=== PATIENT | female | born 1940 | race Caucasian/White ===

== ENCOUNTER 2020-05-20 00:36 | Outpatient (CLI) | payer MEDICARE, SELFPAY ==
[2020-05-20 18:03] LABS: SARS-CoV-2 RNA PCR Negative
== END 2020-05-20 00:37 | disposition home or self-care (01) ==
LOC: ANHCOVIDDT 00:42
PROVIDERS: PCP Family Medicine; Visit Provider Surgery Plastic and Reconstructive Surgery
DX: Z01.812 Encounter for preprocedural laboratory examination (principal); Z20.828 Contact with and (suspected) exposure to other viral communicable diseases
CPT/HCPCS: 87635; C9803; U0003

== ENCOUNTER 2020-05-23 01:16 | Day surgery (SDC) | payer MEDICARE, SELFPAY ==
[2020-05-16 15:11] VITALS: BMI 21.6
[2020-05-23 11:35] VITALS: BP 158/82; PULSE 84; RESP 20; TEMP 36.9; O2SAT 100
[2020-05-23] MEDS: LACTATED RINGERS 1,000 ML 30 ML IV CONT ×2 (12:20→15:39)
--- NOTE | 2020-05-23 13:07 | WPDANESEPPF ---
Anes - Initial Pre Proc Eval Procedure: Operation Date: 05/23/20 13:30 Proposed Procedures p Left Index and Left Middle Finger Sagittal Band Repair, Left Middle Finger and Left Ring Finger Trigger Finger Release - David Preston MD s Left Open Carpal Tunnel Release - David Preston MD Date/Time: 05/23/20 13:07 Surgeon: David Preston MD Pre Op Diagnosis: Left Sagittal Band Rupture/Carpal Juan Syndr Patient Data Age: 80 Gender: F Height: 5 ft 2 in Weight: 54.3 kg Last Vital Signs Temp 98.5 F 05/23/20 11:35 Pulse 84 05/23/20 11:35 Resp 20 05/23/20 11:35 BP 158/82 H 05/23/20 11:35 Pulse Ox 100 05/23/20 11:35 Allergies Allergy/AdvReac Type Severity Reaction Status Date / Time bacitracin Allergy Unknown Rash Verified 05/17/20 10:38 codeine Allergy Unknown Confusion Verified 05/17/20 10:38 erythromycin base Allergy Unknown Nausea Verified 05/17/20 10:38 gramicidin D Allergy Unknown Rash Verified 05/17/20 10:38 neomycin Allergy Unknown Rash Verified 05/17/20 10:38 polymyxin B Allergy Unknown Rash Verified 05/17/20 10:38 Home Medications Medication Instructions Recorded Confirmed Type biotin 1,000 mcg PO DAILY 05/16/20 05/16/20 History calcium carbonate-vitamin D3 1 cap PO DAILY 05/16/20 05/16/20 History [Calcium 600 + D(3)] levothyroxine [Euthyrox] 50 mcg PO DAILY 05/16/20 05/16/20 History lsmxvoty-kbu-awlp-FA-lutein 1 tablet PO DAILY 05/16/20 05/16/20 History [Centrum Silver Women] omega 7-cbi-nlh-fish oil [Fish Oil] 1 cap PO DAILY 05/16/20 05/16/20 History docusate sodium 100 mg capsule 100 mg PO BID #14 cap 05/17/20 Rx ondansetron HCl 4 mg tablet 4 mg PO Q6H PRN #30 tablet 05/17/20 Rx tramadol 50 mg tablet 50 mg PO Q6H PRN #15 tablet 05/17/20 05/17/20 Rx Patient hx anesthesia problems: none Family hx anesthesia problems: none PMFSH Past Medical History Medical History (Updated 05/23/20 @ 13:06 by Shreyas Nelson MD) Broken femur Hypothyroidism Surgical History Surgical History Hx of blepharoplasty Social History Social History Smoking status: Never smoker Alcohol intake: never Living arrangements: alone Spiritual care concerns: No Anes - Eval Final PreProcedure Day of Procedure 05/23/20 13:07 Patient weight: normal Heart: regular rate and rhythm Lungs: clear to auscultation Airway: Mallampati scale class II Neurological: alert and oriented and dysarthria Last oral intake: >/= 8 hours ASA classification: II Emergent: no Anesthetic plan: proceed Anesthesia type and monitoring: general GIVS and standard monitoring Informed Consent: The patient's anesthetic plan and its attendant risks and benefits were discussed with the patient/family/POA. Questions were solicited and answers provided to the satisfaction of the patient/family/POA.
--- NOTE | 2020-05-23 13:17 | SUR.PREOP ---
1200-PT AWARE SURGEON HAS DELAYED SELF MINIMUM OF 60 MINUTES. 1300-PT AWARE SURGEON DELAY IS NOW 90 MINUTES.
--- NOTE | 2020-05-23 14:05 | WPDHPUPDATE1 ---
History and Physical Update Update Date/Time: 05/23/20 14:05 History and Physical has been reviewed, including an updated exam of the patient. There are NO changes in the patient's condition. Risks, benefits, and alternatives have been discussed and questions answered. Patient agrees to proceed with procedure.
--- NOTE | 2020-05-23 14:31 | P.OP_ITS ---
Procedure Note - Detailed Date of procedure: 05/23/20 Pre-op diagnosis: Left Sagittal Band Rupture/Carpal Juan Syndr Post-op diagnosis: same Procedure performed: 1. Left open carpal tunnel release 2. Left middle finger A1 glory release 3. Left ring finger A1 glory release 4. Left index finger sagittal band repair 5. Left middle finger sagittal band repair Description of procedure: A thorough hand examination was completed preoperativ jaye to verify the findings. Risks, benefits, alternatives discussed. All questions answered to her satisfaction and consent obtained. She was taken to the operating room placed supine on the operating room table. Anesthesia was provided by anesthesiology and prepped and draped in a standard sterile fashion. Surgical time-out was taken. 1% lidocaine and 0.25% Marcaine with epinephrine was used anesthetize locally at each area. Esmarch was used to exsanguinate the arm and tourniquet inflated to 250 mmHg. A 15 blade used to make an incision just ulnar to the palmaris longus tendon. Dissection was continued down until the transverse carpal ligament was identified this was completely released under direct visualization with no evidence of neurovascular tendon injury. I closed with horizontal mattress 4-0 nylon. A 15 blade used to make an incision middle finger A1 pulleys. Dissection was continued down to the midline protecting the neurovascular bundle and the A1 pulleys were completely released under direct visualization with no evidence of neurovascular tendon injury. This was closed with 4-0 nylon. A 15 blade used to make an incision over the MP joints dorsally of the index and middle finger. I put the hand through range of motion to verify the sagittal band injury on the radial aspect with ulnar subluxation. The index finger clearly had subluxation, the middle finger did not. Fifteen blade used to make an incision to create a distally-based slip of the extensor tendon using the most ulnarl 3rd. This was passed under the tendon and then around the collateral ligament him back to itself and sutured with 3-0 Ticron. On the middle finger I tightened the radial sagittal band with 3-0 Ticron Tourniquet was released and a verified strict hemostasis. Closed with 5 0 nylon. A volar based splint was made with the MPs in extension. Xeroform fluffs and a lightly applied Miguel Angel wrap were placed. Patient tolerated well. Anesthesia: MAC Surgeon: David Preston MD Estimated blood loss (mL): 5 Tourniquet time (min): 28 Drains: No Packing: No Pathology: none sent Complications: No immediate complications Condition: stable Disposition: PACU
[2020-05-23] MEDS: ceFAZolin 2 GM/D5W 50 ML 2 GM/50 ML BAG IVPB (14:32)
[2020-05-23] MEDS: LIDO 1%/EPINEPHRINE 1:100,000 20 ML VIAL INFILTRATE (14:32)
[2020-05-23 15:40] VITALS: BP 118/61; PULSE 73; RESP 12; O2SAT 97
[2020-05-23 16:10] VITALS: BP 137/71; PULSE 80; RESP 16
[2020-05-23 16:40] VITALS: BP 154/78; PULSE 68; RESP 14
== END 2020-05-23 17:19 | disposition home or self-care (01) ==
PROVIDERS: PCP Family Medicine; Visit Provider Surgery Plastic and Reconstructive Surgery
PROC: (CPT 26055; principal; 2020-05-23 13:30)
PROC: (CPT 64721; 2020-05-23 13:30)
DX: G56.02 Carpal tunnel syndrome, left upper limb (principal); S66.313A Strain of extensor muscle, fascia and tendon of left middle finger at wrist and hand level, initial encounter; S66.311A Strain of extensor muscle, fascia and tendon of left index finger at wrist and hand level, initial encounter; X58.XXXA Exposure to other specified factors, initial encounter
CPT/HCPCS: 64721; 26055 ×2; 26418 ×2; J0690; J2405; J2704; J3010; J7120

== ENCOUNTER 2020-08-10 07:45 | Outpatient (CLI) | payer MEDICARE, SELFPAY ==
--- NOTE | ~2020-08-10 | MM_ITS ---
EXAMINATION: MM screening prince BI w [place] HISTORY: Screening mammogram TECHNIQUE: Craniocaudal and mediolateral oblique 3-D tomosynthesis images were obtained and synthetic 2-D images were generated. CAD analysis was submitted and interpreted. COMPARISON: 05/19/2019, 05/14/2018, 05/08/2017 bilateral digital screening mammogram examinations BREAST PARENCHYMAL COMPOSITION: There are scattered areas of fibroglandular density. FINDINGS: There is no evidence of suspicious mass, calcification, or architectural distortion to sugg est malignancy in either breast. There has been no suspicious interval change. IMPRESSION: 1. No mammographic evidence of malignancy. 2. Recommend routine screening mammography in one year. BI-RADS Category 1: Negative Reviewed, dictated and finalized at location A. AL SECURITY ASSESSOR
== END 2020-08-10 07:46 | disposition home or self-care (01) ==
LOC: ANHIMG 07:49
PROVIDERS: PCP Family Medicine; Visit Provider Family Medicine
DX: Z12.31 Encounter for screening mammogram for malignant neoplasm of breast (principal)
CPT/HCPCS: 77063; 77067

== ENCOUNTER 2020-10-18 09:59 | Outpatient (CLI) | payer MEDICARE, SELFPAY ==
--- NOTE | ~2020-10-18 | CT_ITS ---
EXAMINATION: CT abdomen pelvis w con INDICATION: Unspecified abdominal pain TECHNIQUE: Computed tomographic images of the abdomen and pelvis were obtained after the administrati on of 100 cc of Omnipaque 350 intravenous contrast. The dose-length product (DLP) was 316.69 mGy-cm. Automated exposure control and iterative reconstruction technique were employed. COMPARISON: None available FINDINGS: Minimal dependent atelectasis is present in the lung bases. The heart size is normal. The l iver, spleen, pancreas, gallbladder, and adrenal glands are normal. The kidneys are unremarkable. No pathologically enlarged abdominal or pelvic lymph nodes are identified. There is no free intraperiton eal gas or evidence of bowel obstruction. A moderate volume of colonic stool is present. There is a 5 .1 x 3.8 cm cystic lesion in the pelvis situated between the rectum, uterus, and the distal sigmoid c olon. A small fat-containing umbilical hernia is noted. Orthopedic hardware is present in proximal ri ght femur. There is severe lumbar spondylosis. IMPRESSION: 1. No CT correlate for the patient's symptoms. 2. Cystic lesion deep in the pelvis of unclear origin. Finding could reflect sequela of prior surgery such as a peritoneal inclusion cyst or seroma in the appropriate clinical context. Other considerati ons include lymphangioma or enteric duplication cyst. Malignancy is less favored. Follow-up pelvic ul trasound is recommended. Reviewed, dictated and finalized at location A. AND FIXTURE BUILDER IMPRESSION: 1. No CT correlate for the patient's symptoms. 2. Cystic lesion deep in the pelvis of unclear origin. Finding could reflect se quela of prior surgery such as a peritoneal inclusion cyst or seroma in the rober ropriate clinical context. Other considerations include lymphangioma or enteric duplication cyst. Malignancy is less favored. Follow-up pelvic ultrasound is r ecommended.
[2020-10-18 10:23] LABS: Estimated Glomerular Filt Rate 53
== END 2020-10-18 10:00 | disposition home or self-care (01) ==
LOC: ANHIMG 10:05
PROVIDERS: PCP Family Medicine; Visit Provider Family Medicine
DX: R10.9 Unspecified abdominal pain (principal); R93.5 Abnormal findings on diagnostic imaging of other abdominal regions, including retroperitoneum
CPT/HCPCS: 74177; Q9967

== ENCOUNTER 2020-10-31 10:31 | Outpatient (CLI) | payer MEDICARE, SELFPAY ==
--- NOTE | ~2020-10-31 | US_ITS ---
EXAMINATION: US pelvic complete w TV DATE: 10/31/2020 11:20 INDICATION: Unspecified abdominal pain. Pelvic cystic mass. TECHNIQUE: Multiple transabdominal and transvaginal sonographic images of the pelvis were obtained. COMPARISON: CT abdomen and pelvis 10/18/2020, lumbar spine MRI 12/26/17 FINDINGS: TRANSABDOMINAL ULTRASOUND: The uterus measures 7.1 x 2.7 x 4.2 cm. There is no free fluid in the pelvis. TRANSVAGINAL ULTRASOUND: The endometrial complex contains fluid and 2 polyps with the larger measuring 6 mm. The endometrial c omplex measures 2 mm in thickness not including the polyps. The right ovary measures 0.7 x 2.1 x 0.9 cm. The left ovary measures 1.5 x 2.8 x 1.9 cm. There is normal vascular flow in the ovaries. There i s a 4.6 cm cystic mass with peripheral low level echoes posterior to the uterus. IMPRESSION: 1. 4.6 cm cystic mass with peripheral low level echoes posterior to the uterus, stable from 12/26/17, likely benign. 2. Two endometrial polyps measuring up to 6 mm. Consider resection. Reviewed, dictated and finalized at location A. KNITTER HELPER
== END 2020-10-31 10:32 | disposition home or self-care (01) ==
PROVIDERS: PCP Family Medicine; Visit Provider Physician Assistant
DX: R10.9 Unspecified abdominal pain (principal); R93.89 Abnormal findings on diagnostic imaging of other specified body structures
CPT/HCPCS: 76830; 76856

== ENCOUNTER → 2020-11-28 15:15 | Outpatient (CLI) | payer MEDICARE, SELFPAY ==
--- NOTE | ~2020-11-28 | XR_ITS ---
EXAMINATION: XR forearm LT 2V DATE: 11/28/2020 16:10 INDICATION: Medial left forearm bruising post fall TECHNIQUE: AP an lateral views of the left forearm were obtained. COMPARISON: none FINDINGS: Postoperative change of prior first carpal metacarpal suspension arthroplasty with trapezial resectio n. Bone alignment is otherwise normal. No fractures. Mild polyarticular osteoarthritis at the left el bow at multiple joints in the left wrist and carpus. Small enthesophyte at the tip of the olecranon a nd at the lateral epicondyle of the distal humerus. Soft tissues are unremarkable with no elbow joint effusion. IMPRESSION: 1. Postoperative changes of left first carpal metacarpal suspension arthroplasty and mild scattered d egenerative skeletal changes. No acute osseous abnormality. Reviewed, dictated and finalized at location A. IMPRESSION: 1. Postoperative changes of left first carpal metacarpal suspension arthroplast y and mild scattered degenerative skeletal changes. No acute osseous abnormalit y.
--- NOTE | ~2020-11-28 | XR_ITS ---
EXAMINATION: XR knee RT 3V EXAM DATE: 11/28/2020 16:10 INDICATION: No known recent injury provided at this time. Pain of the right knee. TECHNIQUE: Three projections of the right knee. Comparison is made to prior examination from 9. FINDINGS: No evidence osteochondral defect or joint body in the right knee joint. There are no acut e fractures or dislocations identified. There is no subcutaneous gas. There is small joint effusion . Femoral intramedullary mono with supporting screws are unchanged. There is mild tricompartmental pr imary osteoarthritis. IMPRESSION: 1. Mild right knee osteoarthritis. 2. Small joint effusion. Reviewed, dictated and finalized at location A.
--- NOTE | ~2020-11-28 | XR_ITS ---
EXAMINATION: XR foot LT min 3V EXAM DATE: 11/28/2020 16:10 INDICATION: Initial encounter following injury, with pain of the left foot, 1st toe TECHNIQUE: Left foot dorsoplantar, lateral and oblique projections obtained and reviewed. There is n o prior study for comparison. FINDINGS: There is acute fracture at the medial aspect left 1st proximal phalangeal base with about 5 mm gap and also suspect the fractured edge of the avulsion is pointing medially, away from the dono r site. There is also a few millimeters of lateral subluxation proximal phalanx with respect to the m etatarsal head. 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 Al so significantly medially subluxed 2nd and 3rd proximal phalanges at the MCP joints, opposite directi on of the fractured 1st proximal phalanx subluxation. The 2nd and 3rd subluxations suspected most lik jaye chronic, please clinically correlate. There is mild polyarticular left foot primary osteoarthriti s. IMPRESSION: 1. Acute fracture medial base left 1st proximal phalanx. 2. Other findings suspected to be chronic. Reviewed, dictated and finalized at location A.
== END ==
PROVIDERS: PCP Family Medicine; Visit Provider Physician Assistant
DX: S92.912A Unspecified fracture of left toe(s), initial encounter for closed fracture (principal); M17.11 Unilateral primary osteoarthritis, right knee; M25.461 Effusion, right knee; M19.032 Primary osteoarthritis, left wrist; M19.022 Primary osteoarthritis, left elbow
CPT/HCPCS: 73090; 73562; 73630

== ENCOUNTER 2020-12-19 16:10 | Outpatient (CLI) | payer MEDICARE, SELFPAY ==
--- NOTE | 2020-12-19 15:00 | ECG_ITS ---
Measurements Intervals [place] Rate: 62 P: 51 MI: 166 QRS: -54 QRSD: 88 T: 14 QT: 387 QTc: 393 Interpretive Statements SINUS RHYTHM LEFT AXIS DEVIATION LOW QRS VOLTAGE IN PRECORDIAL LEADS CANNOT RULE OUT SEPTAL INFARCT, AGE INDETERMINATE BORDERLINE T WAVE ABNORMALITY- ANTEROLAT/INF LEADS BASELINE ARTIFACT- I, II, III, AVR, AVL, AVF, V1 ABNORMAL ECG Electronically Signed On 12-19-2020 16:52:35 CDT by Roman Ferro D.O.
[2020-12-19 15:19] LABS: Basophils Absolute Auto 0.1 K/mm3 (0.0-0.1); Eosinophils Absolute Auto 0.1 K/mm3 (0-0.3); Eosinophils Percent Auto 1.6 % (0-4.4); Hematocrit 39.8 % (37.0-47.0); Hemoglobin 12.8 g/dL (12.0-15.0); Immature Granulocyte Absolute 0.02 K/mm3 (0.00-0.031); Immature Granulocyte Percent A 0.2 % (0-0.5); Lymphocytes Absolute Auto 2.08 K/mm3 (0.9-3.2); Lymphocytes Percent Auto 25.7 % (18.3-44.2); Mean Corpuscular HGB Conc 32.2 g/dl (32-36); Mean Corpuscular Hemoglobin 31.2 pg (26-34); Mean Corpuscular Volume 97.1 fl (80-100); Mean Platelet Volume 11.1 fl (7.4-10.4); Monocytes Absolute Auto 0.5 K/mm3 (0.1-0.6); Monocytes Percent Auto 6.5 % (2.6-8.5); Neutrophils Absolute Auto 5.3 K/mm3 (1.3-6.7); Platelet Count Result 346 k/mm3 (150-375); Red Cell Distribution Width 13.2 % (11.5-14.5); White Blood Count 8.1 K/mm3 (4.5-10.0)
== END 2020-12-19 16:11 | disposition home or self-care (01) ==
LOC: ANHSURGERY 01-25 16:10
PROVIDERS: PCP Family Medicine; Visit Provider Obstetrics & Gynecology
DX: Z01.818 Encounter for other preprocedural examination (principal); R10.2 Pelvic and perineal pain; R94.31 Abnormal electrocardiogram [ECG] [EKG]
CPT/HCPCS: 36415; 85025; 86850; 86900; 86901; 93005

== ENCOUNTER → 2020-12-26 03:29 | Outpatient (CLI) | payer MEDICARE, SELFPAY ==
[2020-12-26 20:30] LABS: SARS-CoV-2 RNA PCR Negative
== END ==
PROVIDERS: PCP Family Medicine; Visit Provider Obstetrics & Gynecology
DX: Z01.812 Encounter for preprocedural laboratory examination (principal); Z20.822 Contact with and (suspected) exposure to COVID-19
CPT/HCPCS: C9803; U0003; U0005

== ENCOUNTER 2020-12-29 01:52 | Day surgery (SDC) | payer MEDICARE, SELFPAY ==
[2020-12-18 13:13] VITALS: BMI 23.6
--- NOTE | 2020-12-27 12:02 | PM.IMHP ---
H&P: HPI History of Present Illness Date/Time: 12/27/20 12:02 This is an 80 many years postmenopausal who was admitted to undertaken robotic total vaginectomy and bilateral salpingo-oophorectomy. She also has a hernia which Dr. Baez cure repair. Ultrasound showed an endometrial polyp with benign findings on Pap smear and biopsy. Risks and benefits of this procedure reviewed including but not exclusive of , aspiration pneumonia, bleeding, transfusion, perforation to bowel, bladder, ureters, or other internal organs with need for laparotomy. She voiced good understanding. She received the [employer]CO[employer] handout entitled hysterectomy as well as the div in she handout. She had all questions answered and asked to proceed Chief Complaint: pelvic mass and hernia Review of Systems Review of Systems: All systems reviewed & are unremarkable except as noted in HPI and below PMFSH Past Medical History Medical History Broken femur Clawtoe, acquired Fracture of great toe, left, closed High cholesterol History of adverse reaction to anesthesia light-headed, vomited History of basal cell carcinoma Hypothyroidism Postsurgical retinal scar Surgical History Surgical History History of carpal tunnel release left hand History of surgery right femur 2014 Hx of blepharoplasty S/P tonsillectomy and adenoidectomy Family History Family History Sibling Family history of Parkinson's disease Family history of elevated blood lipids Father Family history of glaucoma, Onset Age: 96 Mother Hypertension Family history of malignant neoplasm of stomach, Onset Age: 88 Unknown Diabetes mellitus Heart disease Hypertension Cancer Other Arthritis History of stomach cancer Social History Social History Smoking status: Never smoker Second hand tobacco smoke exposure: No Smoking end date: 05/26/65 Alcohol intake: never Substance use: never Substance use type: does not use Spiritual care concerns: No Meds Home Medications and Allergies Home Medications Medication Instructions Recorded Confirmed Type Calcium 600 + D(3) 1 cap PO DAILY 05/16/20 12/25/20 History Centrum Silver Women 1 tablet PO DAILY 05/16/20 12/25/20 History biotin 1,000 mcg PO DAILY 05/16/20 12/25/20 History omega 7-vwj-tej-fish oil [Fish Oil] 1 cap PO DAILY 05/16/20 12/25/20 History levothyroxine 50 mcg tablet 50 mcg PO DAILY #90 tablet 08/07/20 12/25/20 Rx Allergies Allergy/AdvReac Type Severity Reaction Status Date / Time bacitracin Allergy Unknown Rash Verified 12/26/20 10:40 codeine Allergy Unknown Confusion Verified 12/26/20 10:40 erythromycin base Allergy Unknown Nausea Verified 12/26/20 10:40 gramicidin D Allergy Unknown Rash Verified 12/26/20 10:40 neomycin Allergy Unknown Rash Verified 12/26/20 10:40 polymyxin B Allergy Unknown Rash Verified 12/26/20 10:40 Exam Const: General: no acute distress Eyes: General: appearance normal, both eyes and all related structures Neck: Neck: supple and no JVD Thyroid: thyroid normal Resp: Effort & Inspection: normal respiratory effort Auscultation: clear to auscultation bilaterally Cardio: Rate: regular rate Rhythm: regular rhythm GI: Inspection: non-distended GI Palp: Yes Soft to palpation, No Tenderness to palpation present (GI) and No Guarding due to palpation present (GI) Auscultation: normal bowel sounds : External Female Exam: normal external appearance Speculum Exam - Vagina: normal appearance of the vagina Speculum Exam - Cervix: normal appearance of the cervix Bimanual exam- vagina & uterus: enlarged Bimanual Exam- Adnexa, other: normal adnexae Skin: General skin exam: no rashes or lesions noted Extrem: General: normal
--- NOTE | 2020-12-27 14:57 | PC.NURSE ---
NO CHANGE IN HEALTH HX SINCE LAST INTERVIEW ON 12/18/20
--- NOTE | 2020-12-28 10:54 | WPDANESEPPF ---
Anes - Initial Pre Proc Eval Procedure: Operation Date: 12/29/20 11:30 Proposed Procedures p Robotic Assisted Total Vaginal Hysterectomy With Bilateral Salpingo Oophorectomy - Grover Vega MD s Umbilical Hernia Repair - Jenaro Hernandez DO Date/Time: 12/28/20 10:54 Surgeon: Grover Vega MD Pre Op Diagnosis: Pelvic cystic mass pain Patient Data Age: 80 Gender: F Height: 1.57 m Weight: 58.63 kg Allergies Allergy/AdvReac Type Severity Reaction Status Date / Time bacitracin Allergy Unknown Rash Verified 12/29/20 10:11 codeine Allergy Unknown Confusion Verified 12/29/20 10:11 erythromycin base Allergy Unknown Nausea Verified 12/29/20 10:11 gramicidin D Allergy Unknown Rash Verified 12/29/20 10:11 neomycin Allergy Unknown Rash Verified 12/29/20 10:11 polymyxin B Allergy Unknown Rash Verified 12/29/20 10:11 Home Medications Medication Instructions Recorded Confirmed Type Calcium 600 + D(3) 1 cap PO DAILY 05/16/20 12/29/20 History Centrum Silver Women 1 tablet PO DAILY 05/16/20 12/29/20 History biotin 1,000 mcg PO DAILY 05/16/20 12/29/20 History omega 1-dvw-cbe-fish oil [Fish Oil] 1 cap PO DAILY 05/16/20 12/29/20 History levothyroxine 50 mcg tablet 50 mcg PO DAILY #90 tablet 08/07/20 12/29/20 Rx hydrocodone-acetaminophen 1 tablet PO Q4H PRN #30 tablet 12/29/20 Rx Patient hx anesthesia problems: none Family hx anesthesia problems: none PMFSH Past Medical History Medical History Broken femur Clawtoe, acquired Fracture of great toe, left, closed High cholesterol History of adverse reaction to anesthesia light-headed, vomited History of basal cell carcinoma Hypothyroidism Postsurgical retinal scar Surgical History Surgical History History of carpal tunnel release left hand History of surgery right femur 2014 Hx of blepharoplasty S/P tonsillectomy and adenoidectomy Family History Family History Sibling Family history of Parkinson's disease Family history of elevated blood lipids Father Family history of glaucoma, Onset Age: 96 Mother Hypertension Family history of malignant neoplasm of stomach, Onset Age: 88 Unknown Diabetes mellitus Heart disease Hypertension Cancer Other Arthritis History of stomach cancer Social History Social History Smoking status: Never smoker Second hand tobacco smoke exposure: No Smoking end date: 05/26/65 Alcohol intake: never Substance use: never Substance use type: does not use Living arrangements: alone Spiritual care concerns: No Anes - Eval Final PreProcedure Day of Procedure 12/28/20 10:54 Patient weight: normal Heart: regular rate and rhythm Lungs: clear to auscultation and normal air movement Airway: Mallampati scale class II Neurological: alert and oriented Last oral intake: >/= 8 hours ASA classification: II Emergent: no Anesthetic plan: proceed Anesthesia type and monitoring: general ETT Informed Consent: The patient's anesthetic plan and its attendant risks and benefits were discussed with the patient/family/POA. Questions were solicited and answers provided to the satisfaction of the patient/family/POA.
[2020-12-29] VITALS (10 sets, daily range): BP systolic 121–145; BP diastolic 53–84; PULSE 63–86; RESP 12–18; TEMP 36.1–36.4; O2SAT 96–100
--- NOTE | 2020-12-29 06:03 | WPDHPUPDATE1 ---
History and Physical Update Update Date/Time: 12/29/20 06:03 History and Physical has been reviewed, including an updated exam of the patient. There are NO changes in the patient's condition. Risks, benefits, and alternatives have been discussed and questions answered. Patient agrees to proceed with procedure.
[2020-12-29] MEDS: LACTATED RINGERS 1,000 ML 30 ML IV CONT ×2 (10:30→12:57)
[2020-12-29] MEDS: KETOROLAC 15 MG/ML VIAL (*BKC) IV PUSH ×2 (10:33→17:39)
[2020-12-29] MEDS: ACETAMINOPHEN 500 MG TABLET 1000 MG PO (10:33)
--- NOTE | 2020-12-29 10:39 | SUR.PREOP ---
Dr. Serrato and Dr. Bonnie Conti notified of jewelry on right ring finger. Jewelry waiver signed by patient and placed on chart.
--- NOTE | 2020-12-29 10:53 | SUR.PREOP ---
Per Dr. Serrato hold scopalamine patch at this time.
--- NOTE | 2020-12-29 11:20 | WPDHPUPDATE1 ---
History and Physical Update Update Date/Time: 12/29/20 11:20 History and Physical has been reviewed, including an updated exam of the patient. There are NO changes in the patient's condition. Risks, benefits, and alternatives have been discussed and questions answered. Patient agrees to proceed with procedure.
[2020-12-29] MEDS: ceFAZolin 2 GM/D5W 50 ML 2 GM/50 ML BAG IVPB (11:23)
[2020-12-29] MEDS: BUPIVACAINE/EPINEPHRINE 0.5% 30 ML VIAL INFILTRATE (11:55)
--- NOTE | 2020-12-29 12:25 | PM.PROC ---
Procedure Note - Detailed Date of procedure: 12/29/20 Pre-op diagnosis: Pelvic cystic mass pain Surgeon: Grover Vega MD Postop diagnosis: Torsion of left paraovarian cyst Procedure: Robotic total vaginal hysterectomy and bilateral salpingo-oophorectomy. This was done in conjunction with a umbilical hernia repair with Dr. Jenaro casanova Anesthesia: General tracheal EBL: 25cc Findings: A torsion of left paraovarian cyst. Small uterus and opposite ovary and tube Complications: None Description of procedure: The patient was prepped and draped in the normal sterile fashion placed in the dorsal lithotomy position. Under excellent general endotracheal anesthesia weighted speculum placed in posterior fornix of vagina. The anterior lip of the cervix grasped with a single-tooth tenaculum and the uterus sounded to 8cm. Serial dilatation with fragmented dilators performed followed by passes of the 8. DIEGO and the 2. And a half cold cup. A 16 Yoruba catheter was placed. The remaining the instruments removed. Gloves were changed A supraumbilical incision was made in the Veress needle passed in the abdomen. The abdomen was filled with CO2 gas [id number]. The 8mm trocar was advanced in the abdomen. The down site was visualized and no injury seen. The patient placed in Trendelenburg and right and left lateral quadrant incisions made. The 8mm trocars advanced under direct visualization assuring no injury. A right upper quadrant incision was then made under direct visualization and the 10mm trocar advanced. No injury was seen. The robot was docked. Attention was turned to the mitochondrial disorders counselor. The left round ligament was grasped, burned, cut. Anteriorly a bladder flap was formed by sharply dissecting the bladder away from the uterus and cervix to the opposite round ligament which was clamped, burned, cut. The left infundibulopelvic structure was skeletonized after noting the torsion of the left para ovarian cyst. This was clamped, burned, cut and brought to level of the previously cut round ligament. The right infundibulopelvic structure was skeletonized. This was clamped, burned, cut and brought to the level of the previously cut round ligament. The left round ligaments were skeletonized. These were clamped, burned, cut and brought down and a lateral edge of the uterus until the uterine vessels could be seen each uterine vessel was clamped, burned, cut individually. The right broad clinical ligaments were skeletonized. Clamped, cut, burned and brought down to level acute vessels. Uterine vessels then clamped, burned, cut. Excellent blanching was seen colpotomy incision was made in the cervix uterus and ovaries and tubes removed through the vagina. Blood loss estimated at25cc. The vagina was closed with continuous running 0V lock from lateral edge to lateral edge back midline. Irrigation undertaken until clear. Blood loss estimated 25cc. The robot was undocked. Dr. Nestor lojattbatool took over from that close the ports as well as the pair of umbilical hernia. There were no complications up to this 8
--- NOTE | 2020-12-29 13:03 | PM.PROC ---
Procedure Note - Detailed Date of procedure: 12/29/20 Pre-op diagnosis: Umbilical hernia, Pelvic cystic mass/pain Post-op diagnosis: same Procedure performed: Umbilical hernia repair Description of procedure: Procedure as well as risks and benefits, alternatives were discussed with the patient. Written consent was obtained and placed in chart prior to procedure. Patient underwent robotic hysterectomy with Dr. Bonnie Conti. Please refer to his operative report for his details. I was then called into the room at the conclusion. Patient was already intubated and prepped and draped. Time-out was done to confirm patient and procedure. 0.5% bupivacaine with epinephrine was infiltrated locally around the umbilicus. A 3 cm curvilinear incision was then made just superior to the umbilicus using a 15 blade scalpel. Electrocautery was used for hemostasis and for dissection down to the linea alba. The hernia sac was identified and carefully dissected free from the umbilical stalk using electrocautery. The hernia sac was then excised and discarded. The fascia around the hernia defect was cleared with electrocautery. The hernia defect was then measured. Hernia defect measured about 7-8 mm. The hernia was then repaired using 0 Ethibond [id number] sutures. A total of 3 sutures were placed transversely to approximate the fascia. The sutures were tied down in place and the repair was inspected and appeared secure. No other abnormalities were noted. 0.5% bupivacaine with epinephrine was then infiltrated around the fascia and subcutaneous space. The umbilical stalk was then reapproximated to the linea alba using a 3 0 Vicryl simple interrupted suture. The deep dermis was then also approximated using 3 0 Vicryl simple interrupted sutures. The skin was approximated using 4 Monocryl running subcuticular suture. Exofin glue was then applied on top. Patient was then awakened from anesthesia, extubated, and transferred to recovery. Anesthesia: GETA and local (0.5% bupivacaine with epinephrine) Surgeon: Jenaro Hernandez DO Estimated blood loss (mL): 2 Pathology: none sent Complications: No immediate complications Condition: stable Disposition: observation Findings: This is an 80-year-old woman who presented with a bulge in her umbilicus that had been present for several years. She has noticed some increasing abdominal pain recently, and was also having some pelvic pain. Workup showed evidence uterine fibroids and she was evaluated by her hand candy dipper. Decision was made to proceed with robotic hysterectomy, and patient was then referred for possible umbilical hernia repair at the same time. A small less than 1 cm umbilical hernia was identified on exam, and discussions were made with the patient about her treatment options. Decision was made to proceed with umbilical hernia repair at the time of robotic hysterectomy. Umbilical hernia repair was performed. The patient was found have a 7-8 mm umbilical hernia containing some preperitoneal fat. The hernia sac was excised. The hernia defect was then closed using 0 Ethibond [id number] sutures. A total of 3 sutures were placed transversely to approximate the fascia. No other abnormalities were noted.
[2020-12-29] MEDS: fentaNYL CITRATE INJ (*CRX) 100 MCG/2 ML VIAL 25 MCG IV PUSH ×4 (13:16→13:45)
[2020-12-29] MEDS: DEXTROSE 5%/0.45% SOD CHL 1,000 ML 125 ML IV CONT (14:44)
[2020-12-29] MEDS: ONDANSETRON INJ 4 MG/2 ML VIAL IV PUSH (14:44)
[2020-12-29] MEDS: PROMETHAZINE HCL 25 MG/ML AMPUL 12.5 MG IV PUSH (17:41)
[2020-12-30 01:00] VITALS: BP 106/59; PULSE 62; RESP 16; TEMP 36.7; O2SAT 99
[2020-12-30 04:45] VITALS: BP 110/58; PULSE 64; RESP 18; TEMP 36.7; O2SAT 98
[2020-12-30] MEDS: KETOROLAC 15 MG/ML VIAL (*BKC) IV PUSH (05:26)
[2020-12-30 05:34] LABS: Basophils Percent Auto 0.2 % (0.2-1.2); Eosinophils Absolute Auto 0.1 K/mm3 (0-0.3); Eosinophils Percent Auto 0.6 % (0-4.4); Hematocrit 34.3 % (37.0-47.0); Hemoglobin 11.2 g/dL (12.0-15.0); Immature Granulocyte Absolute 0.03 K/mm3 (0.00-0.031); Immature Granulocyte Percent A 0.3 % (0-0.5); Lymphocytes Absolute Auto 1.63 K/mm3 (0.9-3.2); Lymphocytes Percent Auto 16.5 % (18.3-44.2); Mean Corpuscular HGB Conc 32.7 g/dl (32-36); Mean Corpuscular Hemoglobin 31.5 pg (26-34); Mean Corpuscular Volume 96.3 fl (80-100); Mean Platelet Volume 11.1 fl (7.4-10.4); Monocytes Absolute Auto 0.9 K/mm3 (0.1-0.6); Monocytes Percent Auto 8.7 % (2.6-8.5); Neutrophils Absolute Auto 7.3 K/mm3 (1.3-6.7); Neutrophils Percent Auto 73.7 % (45.5-73.1); Platelet Count Result 254 k/mm3 (150-375); Red Blood Count 3.56 M/mm3 (4.2-5.4); White Blood Count 9.9 K/mm3 (4.5-10.0)
--- NOTE | 2020-12-30 07:34 | WPDANESPN ---
Anes - Prog Note Post-Op Date/Time: 12/30/20 07:34 Cardiovascular status: normal Respiratory status: normal Airway patency: baseline Mental status: baseline Post-Op hydration status: normal Vital Signs: Last Vital Signs Temp 36.7 C 12/30/20 04:45 Pulse 64 12/30/20 04:45 Resp 18 12/30/20 04:45 BP 110/58 L 12/30/20 04:45 Pulse Ox 98 12/30/20 04:45 Pain Score (VAS): 2 I/O: Intake & Output 12/29/20 12/29/20 12/30/20 15:59 23:59 07:59 Intake Total 200 1350 200 Output Total 150 1850 600 Balance 50 -500 -400 Laboratory Tests 12/30/20 04:43 12/30/20 04:43 WBC 9.9 RBC 3.56 L Hgb 11.2 L Hct 34.3 L MCV 96.3 MCH 31.5 MCHC 32.7 RDW 13.0 Plt Count 254 MPV 11.1 H Immature Gran % (Auto) 0.3 Neut % (Auto) 73.7 H Lymph % (Auto) 16.5 L [place] % (Auto) 8.7 H Eos % (Auto) 0.6 Baso % (Auto) 0.2 Lymph # (Auto) 1.63 [place] # (Auto) 0.9 H Eos # (Auto) 0.1 Baso # (Auto) 0.0 Abs Immat Gran (auto) 0.03 Absolute Neuts (auto) 7.3 H Absolute Nucleated RBC 0.0 Nucleated RBC % 0.0 Post-procedural complaints: none Patient Feedback: Patient satisfied with anesthetic care.
--- NOTE | 2020-12-30 07:54 | P.PNOB_ITS ---
OB - PN: Subj Subjective Date/time seen: 12/30/20 07:54 Patient comments: no complaints and pain well controlled OB - PN: Obj Data Labs CBC & Chem 7: 12/30/20 04:43 Labs: Laboratory Results - last 24 hr 12/30/20 04:43 WBC 9.9 RBC 3.56 L Hgb 11.2 L Hct 34.3 L MCV 96.3 MCH 31.5 MCHC 32.7 RDW 13.0 Plt Count 254 MPV 11.1 H Immature Gran % (Auto) 0.3 Neut % (Auto) 73.7 H Lymph % (Auto) 16.5 L [place] % (Auto) 8.7 H Eos % (Auto) 0.6 Baso % (Auto) 0.2 Lymph # (Auto) 1.63 [place] # (Auto) 0.9 H Eos # (Auto) 0.1 Baso # (Auto) 0.0 Abs Immat Gran (auto) 0.03 Absolute Neuts (auto) 7.3 H Absolute Nucleated RBC 0.0 Nucleated RBC % 0.0 OB - PN A/P Plan day: 1 Plan: discharge home and follow up 6 weeks (2 weeks) Time Spent With Patient Time: Total time spent is greater than 50% in coordination of care (as documented) at patient's floor/unit and/or counseling patient: Time with patient: less than 15 minutes Review of Systems Review of Systems: All systems reviewed & are unremarkable except as noted in HPI and below Exam Const: General: no acute distress Eyes: General: appearance normal, both eyes and all related structures Neck: Neck: supple and no JVD Thyroid: thyroid normal Resp: Effort & Inspection: normal respiratory effort Auscultation: clear to auscultation bilaterally Cardio: Rate: regular rate Rhythm: regular rhythm GI: Inspection: normal to inspection and incision ( 40cdi) Percussion: Yes normal to percussion Auscultation: normal bowel sounds Skin: General skin exam: no rashes or lesions noted Extrem: General: normal to inspection and no edema Psych: Mental Status: mental status grossly normal Affect: normal affect
[2020-12-30 09:00] VITALS: BP 97/53; PULSE 71; RESP 16; TEMP 36.2
[2020-12-30] MEDS: DOCUSATE SODIUM 100 MG CAPSULE PO (09:02)
[2020-12-30] MEDS: ENOXAPARIN 40 MG/0.4 ML SYRINGE SUB-Q (09:02)
== END 2020-12-30 12:12 | disposition home or self-care (01) ==
LOC: ANHSURGERY 13:08 → ANHOB2 14:17
PROVIDERS: Surgery; PCP Family Medicine; Visit Provider Obstetrics & Gynecology
PROC: (CPT 58552; principal; 2020-12-29 11:30)
PROC: (CPT 49585; 2020-12-29 11:30)
DX: N83.53 Torsion of ovary, ovarian pedicle and fallopian tube (principal); N83.8 Other noninflammatory disorders of ovary, fallopian tube and broad ligament; N84.0 Polyp of corpus uteri; D25.2 Subserosal leiomyoma of uterus; N73.6 Female pelvic peritoneal adhesions (postinfective); D27.1 Benign neoplasm of left ovary; K42.9 Umbilical hernia without obstruction or gangrene; R10.12 Left upper quadrant pain; E78.00 Pure hypercholesterolemia, unspecified; Z85.828 Personal history of other malignant neoplasm of skin; E03.9 Hypothyroidism, unspecified
CPT/HCPCS: 58552; 49585; S2900; 36415; 85025; 88307; 99199; A9270; J0330; J0690; J1100; J1170; J1650; J1885; J2405; J2550; J2704; J2710; J3010; J7030; J7120

== ENCOUNTER 2021-08-20 10:46 | Outpatient (CLI) | payer MEDICARE, SELFPAY | END 2021-08-20 10:47 | disposition home or self-care (01) | LOC: ANHAUDASC 10:46 | PROVIDERS: PCP Family Medicine; Visit Provider Family Medicine | DX: H91.90 Unspecified hearing loss, unspecified ear (principal) | CPT/HCPCS: 92557; 92567 ==

== ENCOUNTER 2021-10-03 10:00 | Outpatient (RCR) | payer MEDICARE, SELFPAY | END 2021-12-04 23:59 | disposition home or self-care (01) | LOC: ANHAUDASC 10:00 | PROVIDERS: PCP Family Medicine; Visit Provider Family Medicine | DX: Z46.1 Encounter for fitting and adjustment of hearing aid (principal) | CPT/HCPCS: 99199; V5261 ==

== ENCOUNTER 2021-10-29 14:30 | Outpatient (RCR) | payer MEDICARE, SELFPAY | END 2022-01-01 23:59 | disposition home or self-care (01) | LOC: ANHAUDASC 14:30 | PROVIDERS: PCP Family Medicine; Visit Provider Family Medicine | DX: Z46.1 Encounter for fitting and adjustment of hearing aid (principal) | CPT/HCPCS: 99199 ==

== ENCOUNTER → 2022-01-29 12:45 | Outpatient (CLI) | payer MEDICARE, SELFPAY ==
--- NOTE | ~2022-01-29 | XR_ITS ---
XR chest 2V 01/29/2022 13:09 Indication: Chest pain Procedure: 2 view chest Comparison: 01/13/2014 Findings: Heart size normal. No focal air space disease, pulmonary edema, pleural effusion or suspect ed pneumothorax. The lungs are hyperinflated which is consistent with, but not diagnostic of chronic obstructive pulmonary disease. Impression: 1: No acute cardiopulmonary disease. Reviewed, dictated and finalized at location A. Impression: 1: No acute cardiopulmonary disease.
== END ==
PROVIDERS: PCP Family Medicine; Visit Provider Physician Assistant
DX: R07.9 Chest pain, unspecified (principal)
CPT/HCPCS: 71046

== ENCOUNTER 2022-02-07 09:37 | Outpatient (CLI) | payer MEDICARE, SELFPAY ==
--- NOTE | ~2022-02-07 | NM_ITS ---
EXAMINATION: NM starla stress w perfusion DATE: 02/07/2022 11:58 INDICATION: Chest pain TECHNIQUE: Rest images were obtained following intravenous administration of 10.5 mCi Tc99m tetrofosm in (Myoview). The patient was infused intravenously with Lexiscan (Regadenoson). Then, 32.7 mCi Tc99m tetrofosmin (Myoview) was administered intravenously, and stress images were obtained. Data was vane nstructed into short axis and horizontal and vertical long axis SPECT images. Gated SPECT images were also obtained. COMPARISON: None. FINDINGS: There is no definite reversible or fixed perfusion abnormality to suggest ischemia or infar ction. There is normal left ventricular chamber size, wall motion and ejection fraction. Left ventr icular ejection fraction measures >70%. IMPRESSION: 1. Normal myocardial perfusion at rest and during stress. 2. Left ventricular ejection fraction measuring >70%. Reviewed, dictated and finalized at location B.
--- NOTE | 2022-02-07 09:55 | EST_ITS ---
Patient Info Name: Sol Ortiz Age: 82 years : 1940 Gender: Female Ht: 62 in Wt: 124 lbs BSA: 1.57 m2 HR: 71 bpm BP: 153 / 84 mmHg Heart Rhythm: Sinus Rhythm Exam Date: 02/07/2022 11:03 AM Exam Location: [facility] Stress Patient Status: Outpatient Admit Date: 02/07/2022 Staff Ordering Physician: Familia Franco PA-C Attending Provider: Familia Franco PA-C Exercise Technologist: Abbi Godwin CT Exercise Physician: Roman Ferro DO Exam Type: CA stress starla w NM Study Info Indications R07.9 - Chest pain, unspecified A regadenoson stress test was performed. Summary 1. 1. Negative lexiscan stress test for ischemic ST changes by ECG criteria. 2. 2. Baseline hypertension. 3. 3. Nuclear scan to follow and will be reported separately. Please correlate with it. 4. 4. Patient informed of the above results. Protocol: Lexiscan Stress ECG Details Stage: REST Duration (min): 1 min : 52 sec HR (bpm): 68 SBP (mmHg): 153 DBP (mmHg): 84 Stage: REST Duration (min): 7 min : 18 sec HR (bpm): 69 SBP (mmHg): 153 DBP (mmHg): 84 Stage: STAGE 1 Duration (min): 1 min : 0 sec HR (bpm): 84 SBP (mmHg): 151 DBP (mmHg): 87 Stage: RECOVERY Duration (min): 1 min : 0 sec HR (bpm): 98 SBP (mmHg): 151 DBP (mmHg): 87 Stage: RECOVERY Duration (min): 2 min : 0 sec HR (bpm): 95 SBP (mmHg): 151 DBP (mmHg): 87 Stage: RECOVERY Duration (min): 3 min : 0 sec HR (bpm): 89 SBP (mmHg): 131 DBP (mmHg): 72 Stage: RECOVERY Duration (min): 4 min : 0 sec HR (bpm): 88 SBP (mmHg): 132 DBP (mmHg): 80 Stage: RECOVERY Duration (min): 4 min : 47 sec HR (bpm): 85 SBP (mmHg): 132 DBP (mmHg): 73 Rest HR: 69 bpm Peak HR: 98 bpm Rest Sys BP: 153 mmHg Peak Sys BP: 151 mmHg Max Pred HR: 138 bpm % Max Pred HR: 71 % Target HR: 117 bpm Max RPP: 14,798 bpm*mmHg Termination Reason: Completed protocol Cardiac Symptoms: Shortness of breath Total Time: 1 min : 0 sec Rest Melendez BP: 84 mmHg Peak Melendez BP: 87 mmHg Total Dose: 0.4 mg Resting ECG Sinus rhythm, cannot r/o septal infarct, age indeterminate. Stress ECG No ST changes. Arrhythmias None. Report Signatures
== END 2022-02-07 09:38 | disposition home or self-care (01) ==
PROVIDERS: PCP Family Medicine; Visit Provider Physician Assistant
DX: R07.89 Other chest pain (principal)
CPT/HCPCS: 78452; 93017; A9502; J2785

== ENCOUNTER 2022-02-20 10:54 | Outpatient (RCR) | payer MEDICARE, SELFPAY | END 2022-05-21 23:59 | disposition home or self-care (01) | LOC: ANHAUDASC 10:54 | PROVIDERS: PCP Family Medicine; Visit Provider Family Medicine | DX: Z46.1 Encounter for fitting and adjustment of hearing aid (principal) | CPT/HCPCS: 99199 ==

== ENCOUNTER 2022-03-14 09:03 | Outpatient (CLI) | payer MEDICARE, SELFPAY ==
--- NOTE | ~2022-03-14 | MM_ITS ---
EXAMINATION: MM screening prince BI w [place] HISTORY: Screening TECHNIQUE: Craniocaudal and mediolateral oblique 3-D tomosynthesis images were obtained and synthetic 2-D images were generated. CAD analysis was submitted and interpreted. COMPARISON: Comparison to multiple prior studies sequentially, with oldest reviewed study dated 05/03. BREAST PARENCHYMAL COMPOSITION: There are scattered areas of fibroglandular density. FINDINGS: There is no evidence of suspicious mass, calcification, or architectural distortion to sugg est malignancy in either breast. There has been no suspicious interval change. IMPRESSION: 1. No mammographic evidence of malignancy. 2. Recommend routine screening mammography in one year. BI-RADS Category 1: Negative Reviewed, dictated and finalized at location A.
== END 2022-03-14 09:04 | disposition home or self-care (01) ==
LOC: ANHIMG 09:05
PROVIDERS: PCP Family Medicine; Visit Provider Physician Assistant
DX: Z12.31 Encounter for screening mammogram for malignant neoplasm of breast (principal)
CPT/HCPCS: 77063; 77067

== ENCOUNTER 2022-06-18 14:29 | Outpatient (CLI) | payer MEDICARE, SELFPAY ==
--- NOTE | ~2022-06-18 | XR_ITS ---
EXAMINATION: XR knee RT 3V DATE: 06/18/2022 15:13 INDICATION: Right leg pain. TECHNIQUE: 3 views of right knee were obtained. COMPARISON: Right knee radiographs 11/28/2020 FINDINGS: Bone alignment is normal. No acute fracture. There is internal fixation of right femur with intramedullary mono and 2 distal interlocking screws. There is mild tricompartmental osteoarthritis o f the knee characterized by tiny osteophytes. No joint space narrowing. There is a small knee joint e ffusion. IMPRESSION: 1. Mild right knee osteoarthritis. 2. Small right knee joint effusion. Reviewed, dictated and finalized at location A.
--- NOTE | ~2022-06-18 | US_ITS ---
EXAMINATION: US venous doppler [facility] DATE: 06/18/2022 15:04 INDICATION: Right lower limb pain TECHNIQUE: Grayscale ultrasound images without and with compression and Doppler ultrasound images of the bilateral lower extremity veins were obtained. COMPARISON: None. FINDINGS: The visualized portions of right common femoral vein, profunda (deep) femoral vein, femoral vein, pop liteal vein, posterior tibial veins, peroneal veins and greater saphenous vein outflow are patent. The visualized portions of left common femoral vein, profunda femoral vein, femoral vein, popliteal v ein, posterior tibial veins, peroneal veins and greater saphenous vein outflow are patent. IMPRESSION: 1. No deep venous thrombosis in either lower limb. Reviewed, dictated and finalized at location B.
== END 2022-06-18 14:30 | disposition home or self-care (01) ==
LOC: ANHIMG 14:31
PROVIDERS: PCP Physician Assistant; Visit Provider Physician Assistant
DX: M17.11 Unilateral primary osteoarthritis, right knee (principal); M25.461 Effusion, right knee
CPT/HCPCS: 73562; 93970

== ENCOUNTER 2022-07-15 10:20 | Outpatient (CLI) | payer MEDICARE, SELFPAY ==
[2022-07-15 19:42] LABS: Free T4 Free Thyroxine 1.65 ng/mL (0.78-2.19)
[2022-07-15 20:01] LABS: Thyroid Stimulating Hormone 0.513 uIU/mL (0.465-4.680)
== END 2022-07-15 10:21 | disposition home or self-care (01) ==
LOC: ANHGOSHLAB 10:25
PROVIDERS: PCP Family Medicine; Visit Provider Physician Assistant
DX: I10 Essential (primary) hypertension (principal)
CPT/HCPCS: 36415; 84439; 84443